=== PATIENT | male | born 1955 | race Caucasian/White ===

== ENCOUNTER → 2016-08-26 | Outpatient (CLI) | payer BC ==
--- NOTE | 2016-08-26 16:47 | CR ---
EXAMINATION: Left elbow HISTORY: Effusion COMPARISON: None TECHNIQUE: 3 views FINDINGS/IMPRESSION: There is no acute osseous abnormality, dislocation, or fracture identified. Bon e mineralization and joint spaces preserved. Mild osteophyte and joint space narrowing noted along t he medial joint space.
== END ==
LOC: MW.CHORTHO 07:43
PROVIDERS: ATTEND Physician Assistant
DX: M25.522 Pain in left elbow (principal); M25.422 Effusion, left elbow; M25.722 Osteophyte, left elbow
CPT/HCPCS: 73080-26-LT; 73080-LT

== ENCOUNTER 2022-03-12 10:44 | Day surgery (SDC) | payer MEDICARE, OTHER ==
[~2022-03-12 10:44] MED LIST: Lactated Ringers 1,000 ML IV SCH; cefOXitin 2 GM in Premix Bag 1 BAG IV ONE
[2022-03-12] MEDS ORDERED: propofoL 50 ML ONE (11:33)
[2022-03-12] MEDS ORDERED: cefOXitin 100 ML ONE (11:43)
[2022-03-12] MEDS ORDERED: Lidocaine 2% 5 ML SDV ONE (12:06)
[2022-03-12] MEDS ORDERED: fentaNYL 100 MCG/2 ML SDV ONE (12:06)
[2022-03-12] MEDS ORDERED: Propofol 200 MG/20 ML SDV ONE (12:43)
[2022-03-12] MEDS ORDERED: Lactated Ringers 1,000 ML IV SCH (13:30)
[2022-03-12 13:41] VITALS: PULSE 57
[2022-03-12 13:54] VITALS: BP 110/72
== END 2022-03-12 14:05 | disposition home or self-care (01) ==
LOC: MW.SDS 10:44
PROVIDERS: ATTEND Surgery
DX: Z12.11 Encounter for screening for malignant neoplasm of colon (principal); D12.5 Benign neoplasm of sigmoid colon; K31.A0 Gastric intestinal metaplasia, unspecified; K29.50 Unspecified chronic gastritis without bleeding; K29.70 Gastritis, unspecified, without bleeding; K20.90 Esophagitis, unspecified without bleeding; K57.30 Diverticulosis of large intestine without perforation or abscess without bleeding; D50.9 Iron deficiency anemia, unspecified; I10 Essential (primary) hypertension; E66.9 Obesity, unspecified; I25.10 Atherosclerotic heart disease of native coronary artery without angina pectoris; N40.0 Benign prostatic hyperplasia without lower urinary tract symptoms; R73.03 Prediabetes; Z79.899 Other long term (current) drug therapy; Z88.8 Allergy status to other drugs, medicaments and biological substances; Z98.890 Other specified postprocedural states; Z87.891 Personal history of nicotine dependence; Z68.32 Body mass index [BMI] 32.0-32.9, adult; E78.00 Pure hypercholesterolemia, unspecified; Z79.01 Long term (current) use of anticoagulants; Z90.49 Acquired absence of other specified parts of digestive tract
CPT/HCPCS: 43239; 45380; 45385; J0694; J2704; J3010; J7120